=== PATIENT | female | born 1965 | race Caucasian/White ===

== ENCOUNTER → 2023-09-30 13:27 | Outpatient (REF) | payer OTHER, SELFPAY ==
--- NOTE | 2023-09-30 14:52 | PTCARENOTE ---
Addendum entered by Antoinette Calderon RN 09/30/23 15:05:
correction- Pt here for echo with Bubble Study.
Original Note:
Pt here for echo wit Bubble Study. Procedure completed per protocol with aseptic technique, pt tolerated procedure well, denies Dizziness, denies chest pain. Left median antecubital 22 G PC inserted first attempt, site clear, no redness, no edema.
Heplock D/C ed at 1451, pressure held for few minutes as pt on anticoagulants. No bleeding, 2x2 applied and taped. Pt offers no complaints, no change in status.
== END ==
LOC: RCS 13:27
PROVIDERS: ATTENDING PHYSICIAN Internal Medicine Cardiovascular Disease; FAMILY PHYSICIAN Physician Assistant Medical
DX: I63.342 Cerebral infarction due to thrombosis of left cerebellar artery (principal)
CPT/HCPCS: 93306

== ENCOUNTER → 2024-08-29 12:31 | Outpatient (REF) | payer OTHER, SELFPAY | LOC: DHSLP 12:31 | PROVIDERS: ATTENDING PHYSICIAN Internal Medicine; FAMILY PHYSICIAN Physician Assistant Medical | DX: G47.19 Other hypersomnia (principal); R06.83 Snoring | CPT/HCPCS: 95800 ==

== ENCOUNTER → 2024-09-04 17:54 | Outpatient (REF) | payer OTHER, SELFPAY | LOC: WDC 17:54 | PROVIDERS: ATTENDING PHYSICIAN Student in an Organized Health Care Education/Training Program; FAMILY PHYSICIAN Physician Assistant Medical | DX: Z12.31 Encounter for screening mammogram for malignant neoplasm of breast (principal); Z12.39 Encounter for other screening for malignant neoplasm of breast | CPT/HCPCS: 77063; 77067 ==